=== PATIENT | female | born 1960 | race American Indian/Alaskan Native ===

== ENCOUNTER 2017-11-05 08:56 | Outpatient (CLI) | payer OTHER ==
--- NOTE | 2017-11-05 10:45 | XRay Report ---
Left knee: Left knee pain. Periarticular spurs are identified involving the medial compartment. The joint spaces are preserved and the articular margins are smooth. There is good alignment of the knee joint. The bones appear adequately mineralized. No swelling and no effusion. Image of the patella may be poorly positioned but raises suspicion that there could be narrowing of the lateral retropatellar space. Impressions: Evidence of medial compartment degenerative change.
== END 2017-11-05 08:57 | disposition home or self-care (01) ==
LOC: SPVIMAG 08:56
PROVIDERS: ATTEND Orthopaedic Surgery Sports Medicine
DX: M17.12 Unilateral primary osteoarthritis, left knee (principal)